=== PATIENT | female | born 1935 | race Caucasian/White ===

== ENCOUNTER 2017-01-09 04:11 | Inpatient (IN) ==
[2017-01-02 09:05] LABS: URINE MICRO REVIEW NEEDED? NO; URINE SOURCE CLEAN CATCH
[2017-01-02 09:05] LABS: MANUAL DIFF NEEDED? NO
--- NOTE | 2017-01-02 09:28 | EKG Report ---
Test Performed on : 01/02/2017 08:32:55 AM Test Reason : PAT Blood Pressure : / mmHG Vent. Rate : 073 BPM Atrial Rate : 073 BPM P-R Int : 172 ms QRS Dur : 090 ms QT Int : 372 ms P-R-T Axes : 026 -37 037 degrees QTc Int : 409 ms Normal sinus rhythm. Left axis deviation Abnormal ECG When compared with ECG of 26-JUL-2014 11:39, No significant change was found Confirmed by Fernando HAGAN, Blas Coombs ([id number]) on 01/04/2017 9:11:32 AM
[2017-01-02 09:37] LABS: BILIRUBIN URINE NEGATIVE (NEGATIVE); BLOOD URINE SMALL (NEGATIVE); COLOR STRAW; GLUCOSE URINE NEGATIVE (NEGATIVE); LEUKOCYTES URINE NEGATIVE (NEGATIVE); NITRITE URINE NEGATIVE (NEGATIVE); PROTEIN URINE NEGATIVE (NEGATIVE); SP GRAVITY URINE 1.005; TURBIDITY URINE CLEAR (CLEAR); UR EPITHELIAL CELLS <10 /HPF (<10); URINE BACTERIA NEGATIVE /HPF; URINE RBC <10 /HPF (<10); URINE WBC <10 /HPF (<10); UROBILINOGEN URINE NORMAL (NORMAL)
[2017-01-02 09:39] LABS: BASO% 0.8 % (0.0-0.8); EOS# 0.49 X1000 (0.0-0.7); EOS% 6.3 % (0.0-10.0); HEMATOCRIT 42.2 % (37.0-47.0); HEMOGLOBIN 14.2 g/dL (12.0-16.0); LYMPH# 1.96 X1000 (1.2-3.4); MCH 31.1 PG (27-31); MCHC 33.6 g/dL (33-37); MCV 92.3 FL (81-99); MONO# 0.74 X1000 (0.11-0.59); MONO% 9.4 % (1.7-9.3); MPV 9.7 FL (7.4-10.4); NEUT% 58.5 % (42.2-75.2); PLT 238 X1000 (130-400); RBC 4.57 XMIL (4.2-5.4)
[2017-01-02 09:47] LABS: INR 0.98; PROTIME 10.3 Seconds (9.2-11.7); PTT 28.5 Seconds (22.0-36.0)
[2017-01-02 09:53] LABS: AGAP 12; BUN 8 mg/dL (8-22); CHLORIDE 93 mmol/L (98-107); COSMO 267; POTASSIUM 3.7 mmol/L (3.5-5.1); SODIUM 134 mmol/L (136-145); TCO2 29 mmol/L (25-35)
[2017-01-09] MEDS ORDERED: COLACE ONE (08:01)
[2017-01-09] MEDS ORDERED: PEPCID ONE (08:01)
[2017-01-09] MEDS ORDERED: REGLAN ONE (08:01)
[2017-01-09] MEDS ORDERED: KEFZOL 1 GM/D5W 1 GM/50 ML IVPB ONE (08:02)
[2017-01-09] MEDS ORDERED: LYRICA ONE (08:02)
[2017-01-09] MEDS ORDERED: LR 1,000 ML ONE (08:02)
[2017-01-09] MEDS ORDERED: CELEBREX ONE (08:02)
[2017-01-09] MEDS ORDERED: XYLOCAINE-MPF 2% ONE (10:48)
[2017-01-09] MEDS ORDERED: TORADOL ONE (11:14)
[2017-01-09] MEDS ORDERED: MARCAINE 0.25% PF/EPI 1:200,000 ONE (11:14)
[2017-01-09] MEDS ORDERED: NEOSPORIN G.U. IRRIGANT ONE (11:15)
[2017-01-09] MEDS ORDERED: EXPAREL 1.3% ONE (11:15)
[2017-01-09] MEDS ORDERED: CYKLOKAPRON 1,000 MG/NS 1,000 MG/100 ML IVPB ONE (11:15)
[2017-01-09] MEDS ORDERED: SODIUM CHLORIDE 0.9% ONE (11:15)
[2017-01-09] MEDS ORDERED: OFIRMEV 1000 MG/ISOTONIC SOLN 1,000 MG/100 ML BOTTLE ONE (11:38)
[2017-01-09] MEDS ORDERED: ROBINUL ONE ×3 (11:38→12:38)
[2017-01-09] MEDS ORDERED: DECADRON ONE (11:38)
[2017-01-09] MEDS ORDERED: EPHEDRINE ONE (11:44)
[2017-01-09] MEDS ORDERED: ZEMURON ONE (11:47)
[2017-01-09 12:28] LABS: URINE MICRO REVIEW NEEDED? NO; URINE SOURCE CATH
[2017-01-09] MEDS ORDERED: NEOSTIGMINE ONE (12:37)
[2017-01-09] MEDS ORDERED: DIPRIVAN 1% ONE (12:47)
[2017-01-09] MEDS ORDERED: KETALAR ONE (12:47)
[2017-01-09] MEDS ORDERED: FENTANYL ONE (12:51)
[2017-01-09 12:52] LABS: BILIRUBIN URINE NEGATIVE (NEGATIVE); BLOOD URINE MODERATE (NEGATIVE); COLOR YELLOW; GLUCOSE URINE NEGATIVE (NEGATIVE); LEUKOCYTES URINE NEGATIVE (NEGATIVE); NITRITE URINE NEGATIVE (NEGATIVE); PROTEIN URINE NEGATIVE (NEGATIVE); SP GRAVITY URINE 1.016; TURBIDITY URINE CLEAR (CLEAR); UROBILINOGEN URINE NORMAL (NORMAL)
[2017-01-09 12:53] LABS: UR EPITHELIAL CELLS <10 /HPF (<10); URINE BACTERIA NEGATIVE /HPF; URINE RBC 20-40 /HPF (<10); URINE WBC <10 /HPF (<10)
[2017-01-09] MEDS ORDERED: NS 1,000 ML ONE (13:09)
[2017-01-09] MEDS ORDERED: OXY IR PO PRN (13:15)
[2017-01-09] MEDS ORDERED: MILK OF MAGNESIA PO PRN (13:16)
[2017-01-09] MEDS ORDERED: ZOFRAN IV PRN (13:16)
[2017-01-09] MEDS ORDERED: MORPHINE IV PRN (13:16)
--- NOTE | 2017-01-09 13:26 | OPERATIVE NOTE ---
PROCEDURE DATE: 01/09/2017 PREOPERATIVE DIAGNOSIS: Right hip degenerative joint disease. POSTOPERATIVE DIAGNOSIS: Right hip degenerative joint disease. PROCEDURE: Right anterior total hip arthroplasty using a [facility] size 9 stem with a -4 head neck length, a 32 mm head, and a 50 mm hemispherical shell. ANESTHESIA: Spinal. SURGEON: Herve Linda MD. CERAMIC TILE INSTALLATION HELPER: Emanuel. COMPLICATIONS: None. BLOOD LOSS: Minimal. DRAIN: Hemovac x1. DESCRIPTION OF PROCEDURE: The patient was brought to the operative suite and placed in supine position. After satisfactory administration of spinal anesthesia, patient was placed on the OSI table in the usual position for right hip. The right hip was then prepped and draped in usual sterile fashion. A longitudinal incision was made beginning 2 cm distal and 2 cm lateral to the anterior-superior iliac spine, extending distally and slightly laterally 8 cm. Dissected sharply through skin and subcutaneous tissue down to the tensor fascia. The tensor fascia was incised and dissected bluntly down to the deep tensor fascia. The deep tensor fascia was incised and circumflex vessels were electrocauterized. Then the rectus muscle was elevated off the anterior portion of the capsule, exposing the anterior capsule. A T-capsulotomy was performed, and then the femoral neck cut was made with an oscillating saw. Femoral head was removed with a power corkscrew. The labrum was resected. The acetabulum was serially reamed to a 50 to accept a 50 cup. The 50 cup was driven into place in the proper amount of inclination and anteversion, and then the acetabular liner was locked into place, once it was verified to be in good position. Attention was then directed to the femur. The femur was externally rotated, extended, adducted, and elevated out of the wound with the hook on the OSI bed. The lateral neck was rongeured and the canal was serially broached to a size 9. A size 9 high offset, -4 was trialed and found be excellent leg length, offset, and stability of the hip. The trial was removed. Definitive stem was seated on the femur and then the ceramic head was locked onto the Henley taper and the hip was reduced. It was again found to be in excellent position. The hip was copiously irrigated and dried. The hip was copiously infiltrated with Exparel, including posterior capsule, anterior capsule, anterior musculature, and subcutaneous tissue. The anterior capsule was repaired with an 0 V-Loc suture and then a drain was placed deep to the tensor fascia and buried around the stem neck, and then the tensor fascia was closed with running 0 V-Loc suture, the skin edge approximated with 2-0 Vicryl, and the skin was closed with 4-0 Monocryl and then a Prineo dressing. The patient tolerated the procedure well, without complication. At the end of the procedure, all counts were correct x2. The patient was transferred to the recovery room in stable condition. cc: Herve Linda MD
[2017-01-09] MEDS: MORPHINE ONE ×2 (14:07→14:14)
[2017-01-09] MEDS: NS 1,000 ML IV SCH (14:22)
[2017-01-09] MEDS ORDERED: HESPAN 500 ML ONE (15:22)
[2017-01-09] MEDS ORDERED: ANTIVERT PO PRN (15:25)
[2017-01-09] MEDS: TYLENOL PO SCH ×2 (17:26→23:46)
[2017-01-09] MEDS: ULTRAM PO SCH ×2 (17:27→20:36)
[2017-01-09] MEDS ORDERED: CYKLOKAPRON 1,000 MG in NS 100 ML IV ONE (18:00)
[2017-01-09] MEDS ORDERED: HALL'S COUGH LOZENGE MT PRN (20:10)
[2017-01-09] MEDS: KEFZOL 2 GM/D5W 2 GM/50 ML IVPB IV SCH (20:33)
[2017-01-09] MEDS: COLACE PO SCH (20:34)
[2017-01-09] MEDS: PERIDEX MT SCH (20:35)
[2017-01-09] MEDS: LYRICA PO SCH (20:35)
[2017-01-09] MEDS: AMBIEN PO SCH (23:46)
[2017-01-10] MEDS: KEFZOL 2 GM/D5W 2 GM/50 ML IVPB IV SCH (04:00)
[2017-01-10] MEDS: ULTRAM PO SCH ×2 (05:55→12:01)
[2017-01-10] MEDS: TYLENOL PO SCH ×3 (05:56→19:23)
[2017-01-10] MEDS: NS 1,000 ML IV SCH ×2 (05:56→19:21)
[2017-01-10] MEDS: XARELTO PO SCH (05:57)
[2017-01-10 06:12] LABS: HEMATOCRIT 26.4 % (37.0-47.0); HEMOGLOBIN 8.8 g/dL (12.0-16.0)
[2017-01-10 06:31] LABS: AGAP 7; BUN 10 mg/dL (8-22); CALCIUM 8.3 mg/dL (8.8-10.2); CHLORIDE 99 mmol/L (98-107); COSMO 264; POTASSIUM 3.9 mmol/L (3.5-5.1); SODIUM 132 mmol/L (136-145); TCO2 26 mmol/L (25-35)
[2017-01-10] MEDS ORDERED: DECADRON IV ONE (09:00)
[2017-01-10] MEDS: CELEBREX PO SCH ×2 (09:00→21:21)
[2017-01-10] MEDS: PERIDEX MT SCH ×2 (09:37→21:24)
[2017-01-10] MEDS: SINGULAIR PO SCH (09:37)
[2017-01-10] MEDS: LYRICA PO SCH ×2 (09:38→21:22)
[2017-01-10] MEDS: MONOPRIL PO SCH (09:39)
[2017-01-10] MEDS: DYAZIDE PO SCH (09:40)
[2017-01-10] MEDS: COLACE PO SCH ×2 (09:40→21:22)
[2017-01-10] MEDS: NEXIUM PO SCH (09:40)
--- NOTE | 2017-01-10 13:27 | DISCHARGE SUMMARY ---
ADMISSION DATE: 01/09/2017 DISCHARGE DATE: 01/10/2017 DISCHARGE DIAGNOSIS: Right hip degenerative joint disease status post right anterior total hip arthroplasty. DISCHARGE MEDICATIONS: See discharge medication list. DISPOSITION: Patient discharged home with home health. FOLLOW-UP INSTRUCTIONS: Instructed to return for any signs or symptoms of infection or deep venous thrombosis. FOLLOWUP: She is instructed to return to see Dr. Linda's PA next Saturday. HOSPITAL COURSE: On the day of admission, the patient underwent a right anterior total hip arthroplasty. Postoperative course was unremarkable. At discharge, she is afebrile tolerating a regular diet, ambulating well with physical therapy. Her wound is clean, dry, intact without sign of infection. Her hematocrit is 26.4%. She has only 90 mL out from her drain. DISCHARGE INSTRUCTIONS: She is discharged to home in stable condition with instructions to follow up as described above. cc: Herve Linda MD
--- NOTE | 2017-01-10 15:21 | DISCHARGE SUMMARY ---
ADMISSION DATE: 01/09/2017 DISCHARGE DATE: 01/10/2017 DISCHARGE DIAGNOSIS: Right hip degenerative joint disease status post right total hip arthroplasty. DISCHARGE MEDICATIONS: See discharge medication list. DISPOSITION: The patient is discharged home with home health. DISCHARGE INSTRUCTIONS: 1. Instructions for total hip arthroplasty protocol. 2. Instructed to return to see Dr. Linda next Saturday. HOSPITAL COURSE: On the day of admission, patient underwent a right total hip arthroplasty. Her postoperative course was unremarkable. At discharge, she was afebrile and tolerating a regular diet. Her hemoglobin was 8.8 and her hematocrit was 26.4. She had 90 mL of drainage from the Hemovac. She has not worked with PT yet, so we will have her work with PT this morning before she is discharged home in stable condition with home health, with instructions to follow up as described above. Dictated by CHERELLE Bills for Herve Linda MD cc: CHERELLE Bills MD
[2017-01-10] MEDS: AMBIEN PO SCH (21:20)
[2017-01-10] MEDS ORDERED: SENOKOT PO PRN (21:32)
[2017-01-11] MEDS: ULTRAM PO SCH ×5 (04:00→22:33)
[2017-01-11] MEDS: TYLENOL PO SCH ×4 (04:00→22:34)
[2017-01-11] MEDS: XARELTO PO SCH (07:00)
[2017-01-11 08:06] LABS: HEMATOCRIT 25.5 % (37.0-47.0); HEMOGLOBIN 8.6 g/dL (12.0-16.0)
[2017-01-11] MEDS: CELEBREX PO SCH ×2 (09:26→22:34)
[2017-01-11] MEDS: DYAZIDE PO SCH (09:26)
[2017-01-11] MEDS: SINGULAIR PO SCH (09:26)
[2017-01-11] MEDS: NEXIUM PO SCH (09:26)
[2017-01-11] MEDS: LYRICA PO SCH ×2 (09:27→22:34)
[2017-01-11] MEDS: MONOPRIL PO SCH (09:27)
[2017-01-11] MEDS: COLACE PO SCH ×2 (09:27→22:34)
[2017-01-11] MEDS: PERIDEX MT SCH ×2 (09:28→22:34)
--- NOTE | 2017-01-11 11:37 | DISCHARGE SUMMARY ---
ADMISSION DATE: 01/09/2017 DISCHARGE DATE: 01/11/2017 DISCHARGE DIAGNOSES: Right hip degenerative joint disease status post right total hip arthroplasty. DISCHARGE MEDICATIONS: See discharge medication list. DISPOSITION: Patient discharged to rehab. INSTRUCTIONS: Instructions for anterior total hip arthroplasty protocol: Instructed to return for any signs of infection or deep venous thrombosis. HOSPITAL COURSE: On the day of admission, the patient underwent a right anterior total hip arthroplasty. Her postoperative course was uncomplicated except for quad weakness and numbness in her anterior thigh. She is walking well with Physical Therapy. She is discharged to rehab with a total hip arthroplasty protocol. Instructed in no need to removing any of the dressing on the primary surgical wound. She can bathe and get it wet as it is a Prineo dressing. She will return to see Dr. Linda's PA, Samantha Castellanos, on 01/21/2017. cc: Herve Linda MD
[2017-01-11] MEDS: AMBIEN PO SCH (22:34)
[2017-01-12 06:15] LABS: HEMATOCRIT 24.9 % (37.0-47.0); HEMOGLOBIN 8.4 g/dL (12.0-16.0)
[2017-01-12] MEDS: ULTRAM PO SCH ×2 (06:29→09:07)
[2017-01-12] MEDS: TYLENOL PO SCH ×2 (06:29→09:07)
[2017-01-12] MEDS: XARELTO PO SCH (06:42)
[2017-01-12 07:47] VITALS: BP 122/44
[2017-01-12] MEDS: CELEBREX PO SCH (09:07)
[2017-01-12] MEDS: PERIDEX MT SCH (09:07)
[2017-01-12] MEDS: DYAZIDE PO SCH (09:08)
[2017-01-12] MEDS: COLACE PO SCH (09:09)
[2017-01-12] MEDS: NEXIUM PO SCH (09:09)
[2017-01-12] MEDS: MONOPRIL PO SCH (09:09)
[2017-01-12] MEDS: LYRICA PO SCH (09:09)
[2017-01-12] MEDS: SINGULAIR PO SCH (09:09)
--- NOTE | 2017-01-12 10:51 | PROGRESS NOTE ---
DATE: 01/12/2017 SUBJECTIVE: Francine Tolliver is an 81-year-old female who is status post right total hip arthroplasty. Postoperative day 3, she has no complaints. She is walking better with therapy. OBJECTIVE: She is well-developed and well-nourished female. She is alert, oriented, and cooperative on exam. Her wound is clean, dry, intact without sign of infection. Her leg is neurovascularly intact. ASSESSMENT: Stable right anterior total hip arthroplasty. PLAN: Today, she is being transferred to rehab. I suspect she will do well. She will see me back in the office in 1 week. cc: Herve Linda MD
== END 2017-01-12 12:41 ==
LOC: SURHOLD 04:11 → 4N 11:39
PROVIDERS: ADMIT Orthopaedic Surgery; ATTEND Orthopaedic Surgery